=== PATIENT | male | born 1980 | race Caucasian/White ===

== ENCOUNTER 2016-12-27 09:04 | Inpatient (IN) | payer OTHER ==
[~2016-12-27] VITALS: Ht 177.8 cm; Wt 96.4 kg
[2016-12-27] MEDS ORDERED: ACETAMINOPHEN 500 MG TAB PO PRN (10:00)
[2016-12-27 11:43] LABS: BASO % 0.5 % (0.0-1.0); EOS # 0.1 K/mm3 (0.0-0.50); EOS % 0.8 % (0.0-3.0); LARGE UNSTAINED CELL # 0.2 K/mm3 (0.0-0.4); LYMPH # 1.8 K/mm3 (1.5-4.5); MEAN CORPUSCULAR HEMOGLOBIN 28.2 pg (27.0-33.0); MEAN CORPUSCULAR HGB CONC 32.4 g/dl (32.0-36.5); MONO # 0.3 K/mm3 (0.0-0.8); MONO % 4.1 % (0.0-5.0); NEUTROPHILS # 5.2 K/mm3 (1.8-7.7); NEUTROPHILS % 70.5 % (36.0-66.0); PLATELET COUNT, AUTOMATED 397 k/mm3 (150-450); RED CELL DISTRIBUTION WIDTH 13.2 % (11.5-14.5); WHITE BLOOD COUNT 7.3 K/mm3 (4.0-10.0)
[2016-12-27 12:08] LABS: ALBUMIN 3.6 GM/DL (3.2-5.2); ALBUMIN/GLOBULIN RATIO 1.03 (1.00-1.93); ALKALINE PHOSPHATASE 80 U/L (45-117); ALT/SGPT 21 U/L (12-78); ANION GAP 11 MEQ/L (8-16); AST/SGOT 12 U/L (15-37); BILIRUBIN,TOTAL 0.4 MG/DL (0.2-1.0); BLOOD UREA NITROGEN 16 MG/DL (7-18); CALCIUM LEVEL 8.6 MG/DL (8.5-10.1); CARBON DIOXIDE LEVEL 24 MEQ/L (21-32); CHLORIDE LEVEL 106 MEQ/L (98-107); CREATININE FOR GFR 0.84 MG/DL (0.70-1.30); GLOMERULAR FILTRATION RATE > 60.0 (>60); GLUCOSE, FASTING 79 MG/DL (70-105); POTASSIUM SERUM 4.1 MEQ/L (3.5-5.1); SODIUM LEVEL 141 MEQ/L (136-145); TOTAL PROTEIN 7.1 GM/DL (6.4-8.2)
[2016-12-27 14:00] VITALS: BP 136/94
[2016-12-27] MEDS ORDERED: CEFTAROLINE FOSAMIL 600 MG in D5W MINI-BAG PLUS 50 ML IV SCH (14:00)
[2016-12-27] MEDS: ENOXAPARIN 40 MG/0.4 ML SYRINGE (J1650) SC SCH (15:09)
--- NOTE | 2016-12-27 16:57 | REP ---
Left foot series: Four views: History: Left great toe infection. Findings: Four views of the left foot show what appears to be partial resection of the proximal phalanx of the great toe with mild hallux valgus deformity. There is osteoarthritic hypertrophy and narrowing of the IP joint of the great toe. No acute bony erosive change is seen. There is some dorsal forefoot swelling on the lateral film. No soft tissue gas or opaque foreign body is seen. Impression: Presumed postoperative changes in the proximal phalanx of the great toe and osteoarthritic changes at the IP joint. No acute bony destructive lesion. Dorsal forefoot swelling. Signed by Anselmo Radford MD 12/27/2016 05:40 P
[2016-12-27] MEDS: CEFTAROLINE FOSAMIL 600 MG in D5W MINI-BAG PLUS 50 ML IV SCH (17:19)
--- NOTE | 2016-12-27 18:38 | ECGEPIP ---
Stationary ECG Study [facility] Test Date: 2016-12-27 Pat Name: DEISY MCQUEEN Department: Room: [place] [address] Gender: M Correctional Program Officer: JUAN A : 1980 Requested By: ARACELI Berkowitz PA-C Order Number: [id number] Reading MD: Pablo Cummings Measurements Intervals [place] Rate: 89 P: 66 PA: 174 QRS: -48 QRSD: 107 T: 32 QT: 348 QTc: 424 Interpretive Statements SINUS RHYTHM POSSIBLE LEFT ATRIAL ENLARGEMENT INCOMPLETE RIGHT BUNDLE BRANCH BLOCK LEFT ANTERIOR FASCICULAR BLOCK COMPARED TO THE LAST 2 TRACINGS IN THE SYSTEM IN 2011, NO SIGNIFICANT CHANGES Electronically Signed On 12-27-2016 18:38:25 EDT by Pablo Cummings
[2016-12-27] MEDS: TRIAMCINOLONE ACETONIDE 0.025 % 80 GM CREAM TOP SCH (21:00)
[2016-12-27 22:00] VITALS: BP 170/100
[2016-12-28] MEDS: CEFTAROLINE FOSAMIL 600 MG in D5W MINI-BAG PLUS 50 ML IV SCH (04:33)
[2016-12-28 06:00] VITALS: BP 145/91
[2016-12-28 07:16] LABS: MEAN CORPUSCULAR HEMOGLOBIN 28.1 pg (27.0-33.0); MEAN CORPUSCULAR HGB CONC 32.4 g/dl (32.0-36.5); MEAN CORPUSCULAR VOLUME 86.8 fl (80.0-96.0); RED CELL DISTRIBUTION WIDTH 13.1 % (11.5-14.5); WHITE BLOOD COUNT 7.8 K/mm3 (4.0-10.0)
--- NOTE | 2016-12-28 07:33 | IPNPDOC ---
Subjective Date Seen The patient was seen on 12/28/16. Subjective Chief Complaint/HPI The patient is a 36-year-old male admitted with a reason for visit of Left Great Toe Infection. Events since last encounter Per patient report: Podiatry to remove toenail today. Consult note unavailable at time of evaluation. States toes is sensitive to touch, otherwise, minimal pain. Constitutional: Denies: Chills, Fever, Night Sweats ENT: Denies: Dysphagia, Ear Pain, Head Aches Pulmonary: Denies: Cough, Dyspnea Cardiovascular: Denies: Chest Pain, Lt Headedness, Orthopnea, Palpitations, Paroxysmal Noc. Dyspnea Gastrointestinal: Denies: Abdominal Pain, Constipation, Diarrhea, Nausea, Vomiting Genitourinary: Denies: Dysuria, Frequency, Incontinence, Retention Psych: Reports: Mood Normal, Denies: Depression, Memory Issues Objective Physical Examination General Exam: Positive: Alert, No Acute Distress Eye Exam: Positive: Conjunctiva & lids normal, EOMI, PERRLA, Negative: Sclera icteric Neck Exam: Positive: Supple, Negative: JVD, thyromegaly Chest Exam: Positive: Clear to auscultation, Normal air movement Skin Exam: Positive: Other skin issue (Left great toe: erythema, maceration, ingrowing toenail. ) Assessment /Plan Problems (1) Toe infection Status: Acute Problem Text: Ceftaroline D#2. Podiatry to perform intervention today. (2) Failure of outpatient treatment Status: Acute Plan/VTE VTE Prophylaxis Ordered?: Yes (Lovenox) VS, I&O, 24H, Fishbone Vital Signs/I&O Vital Signs Date Time Temp Pulse Resp B/P Pulse Ox O2 Delivery O2 Flow Rate FiO2 12/28/16 06:00 97.8 79 16 145/91 95 Room Air I&O- Last 24 Hours up to 6 AM 12/28/16 06:00 Intake Total 180 ml Output Total 0 ml Balance 180 ml Laboratory Data 24H LABS Laboratory Tests 2 12/27/16 11:19: Blood Urea Nitrogen 16, Creatinine 0.84, Sodium Level 141, Potassium Level 4.1, Chloride Level 106, Carbon Dioxide Level 24, Calcium Level 8.6, Aspartate Amino Transf (AST/SGOT) 12L, Alanine Aminotransferase (ALT/SGPT) 21, Alkaline Phosphatase 80, Total Bilirubin 0.4, Total Protein 7.1, Albumin 3.6, Albumin/ Globulin Ratio 1.03, Anion Gap 11, White Blood Count 7.3, Red Blood Count 4.61, Hemoglobin 13.0L, Hematocrit 40.1L, Mean Corpuscular Volume 87.0, Mean Corpuscular Hemoglobin 28.2, Mean Corpuscular Hemoglobin Concent 32.4, Red Cell Distribution Width 13.2, Platelet Count 397, Neutrophils (%) (Auto) 70.5H, Lymphocytes (%) (Auto) 22.0L, Monocytes (%) (Auto) 4.1, Eosinophils (%) (Auto) 0.8, Basophils (%) (Auto) 0.5, Neutrophils # (Auto) 5.2, Lymphocytes # (Auto) 1.8, Monocytes # (Auto) 0.3, Eosinophils # (Auto) 0.1, Basophils # (Auto) 0.0, Glomerular Filtration Rate > 60.0, Large Unclassified Cells # 0.2, Large Unclassified Cells % 2.0 12/28/16 06:54: CBC/BMP Laboratory Tests 12/27/16 11:19 Calcium Level 8.6, Aspartate Amino Transf (AST/SGOT) 12 L, Alanine Aminotransferase (ALT/SGPT) 21, Alkaline Phosphatase 80, Total Bilirubin 0.4, Total Protein 7.1, Albumin 3.6, Red Blood Count 4.61, Mean Corpuscular Volume 87.0, Mean Corpuscular Hemoglobin 28.2, Mean Corpuscular Hemoglobin Concent 32.4 , Red Cell Distribution Width 13.2, Neutrophils (%) (Auto) 70.5 H, Lymphocytes ( %) (Auto) 22.0 L, Monocytes (%) (Auto) 4.1, Eosinophils (%) (Auto) 0.8, Basophils (%) (Auto) 0.5, Neutrophils # (Auto) 5.2, Lymphocytes # (Auto) 1.8, Monocytes # (Auto) 0.3, Eosinophils # (Auto) 0.1, Basophils # (Auto) 0.0 12/28/16 06:54 Red Blood Count 4.91, Mean Corpuscular Volume 86.8, Mean Corpuscular Hemoglobin 28.1, Mean Corpuscular Hemoglobin Concent 32.4, Red Cell Distribution Width 13.1 Microbiology Microbiology 12/27/16 Blood Culture, Received Pending Milly Gonzales Dec 28, 2016 07:33 Aftab Mcfarlane MD Dec 28, 2016 13:54
[2016-12-28 07:35] LABS: ALBUMIN 3.4 GM/DL (3.2-5.2); ALBUMIN/GLOBULIN RATIO 0.89 (1.00-1.93); ALKALINE PHOSPHATASE 76 U/L (45-117); ALT/SGPT 23 U/L (12-78); ANION GAP 8 MEQ/L (8-16); AST/SGOT 12 U/L (15-37); BILIRUBIN,TOTAL 0.6 MG/DL (0.2-1.0); BLOOD UREA NITROGEN 12 MG/DL (7-18); CARBON DIOXIDE LEVEL 29 MEQ/L (21-32); CHLORIDE LEVEL 104 MEQ/L (98-107); CREATININE FOR GFR 0.88 MG/DL (0.70-1.30); GLOMERULAR FILTRATION RATE > 60.0 (>60); GLUCOSE, FASTING 105 MG/DL (70-105); SODIUM LEVEL 141 MEQ/L (136-145); TOTAL PROTEIN 7.2 GM/DL (6.4-8.2)
[2016-12-28] MEDS: TRIAMCINOLONE ACETONIDE 0.025 % 80 GM CREAM TOP SCH (10:08)
[2016-12-28] MEDS: ENOXAPARIN 40 MG/0.4 ML SYRINGE (J1650) SC SCH (10:08)
--- NOTE | 2016-12-28 13:51 | CR ---
DATE: 12/27/2016 CHIEF COMPLAINT: Patient seen for evaluation of painful big toe on the left foot and a rash on his right foot. He is seen today for evaluation. PHYSICAL EXAMINATION: Reveals an erythematous, crusty type rash with silverly scales on the dorsal aspect of the foot extending from the base of the hallux on the left foot extending over the dorsal surface of the forefoot. There is a similar colored rash present on the lateral aspect of the right foot, however, this rash is considerably larger measuring approximately 7 cm in diameter. There is marked incurving of the hallux of the left foot with some discharge from the proximal nail fold consistent with a paronychia. 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 No fractures are identified. Dorsalis pedis and posterior tibial pulses are palpable. ASSESSMENT: Ingrowing toenail left big toe with cellulitis, dermatitis dorsal aspect of the left forefoot and lateral right foot. PLAN: Orders written for triamcinolone acetonide 0.025% apply to rash twice daily on the left and right foot. Patient will be seen tomorrow morning for a left hallux nail plate avulsion. His questions were answered. He is presently on ceftaroline 600 mg every 12 hours for his cellulitis. His questions are answered.
[2016-12-28] MEDS ORDERED: AUGM875T27 PO (13:53)
[2016-12-28] MEDS ORDERED: TRIA25CR TOP (13:59)
--- NOTE | 2016-12-29 06:42 | IPN ---
DATE: 12/28/2016 at 12:46 p.m. CHIEF COMPLAINT: The patient is seen at bedside for evaluation of an ingrowing toenail as well as dermatitis on the dorsal aspect of his left foot and venous stasis dermatitis on the lateral surface of his right foot. He is seen today for evaluation. PHYSICAL EXAMINATION: Reveals marked incurving of the medial and lateral nail borders of the left big toe. There is discharge coming from the proximal nailfold. There is a dermatitis noted extending from the toe proximally on to the forefoot. It is erythematous. The skin is lichenified. A similar appearing rash is noted on the lateral surface of the right foot. Linear excoriations are noted through the rash secondary to itching. The rash appears consistent with a venous stasis dermatitis. ASSESSMENT: Infected ingrowing toenail left great toe. Venous stasis dermatitis right foot. Dermatitis dorsal aspect of left foot. PLAN: Patient will continue with corticosteroid cream b.i.d., triamcinolone acetonide 0.025% twice a day. Informed consent was obtained. After appropriate time out and site verification, the hallux was anesthetized with 10 mL of a mixture of 0.5% Marcaine and 2% lidocaine in a Armendraiz block fashion. After appropriate anesthesia, the nail plate was removed and a culture was obtained. A dry sterile dressing was applied. The patient is presently on ceftaroline. His antibiotics can be changed according to his culture. Since his foot appears to be resolving cellulitis with a dermatitis, the patient can be discharged on Augmentin 875 mg, dispense 21, by mouth twice a day. This will be tailored according to his culture. Continue on Kenalog cream to the rash twice a day. We encouraged the patient not to itch his rash. Follow up next week.
--- NOTE | 2016-12-29 20:36 | DSES ---
DATE OF ADMISSION: 12/27/2016 DATE OF DISCHARGE: 12/28/2016 REASON FOR ADMISSION: Mr. Estrella was admitted for the office by his primary care provider with complaint of left great toe swelling, rash, pain. Overall appearance was that of cellulitis involving the nail margins and soft tissue proximal to the nail. He had swelling and pain that had been going on for several days, not responding to oral antibiotics at home. Had previous need to have the nail removed under the care of Dr. Mcdonald. Came to hospital, put on ceftaroline overnight. The rash became less and pain diminished. Dr. Mcdonald saw him in surgical consultation and removed the nail, and as recommended, at this time the patient was discharged on amoxicillin clavulanic acid. DISCHARGE DIAGNOSIS: 1. Cellulitis. 2. Ingrown toenail left big toe. 3. Dermatitis dorsal aspect of left forefoot and lateral right foot. PLAN: Discharged on triamcinolone acetonide 0.025% cream to the rash area per Dr. Mcdonald's recommendation, Augmentin 875/125 one by mouth twice a day for [address] Mcdonald and wound dressings per his instructions to the patient. Activity as tolerated. Usual diet.
== END 2016-12-28 16:20 | disposition home or self-care (01) | DRG 383 ==
LOC: M MS5PR 10:52
PROVIDERS: ADMIT Family Medicine; ATTEND Family Medicine
PROC: 0HBRXZZ Excision of Toe Nail, External Approach (ICD-10-PCS; principal; 2016-12-28)
DX: L03.032 Cellulitis of left toe (principal); I83.893 Varicose veins of bilateral lower extremities with other complications; R00.0 Tachycardia, unspecified; L60.0 Ingrowing nail; L08.9 Local infection of the skin and subcutaneous tissue, unspecified; L20.9 Atopic dermatitis, unspecified; Z87.891 Personal history of nicotine dependence; Z79.2 Long term (current) use of antibiotics

== ENCOUNTER → 2017-01-16 | Outpatient (REF) | payer OTHER ==
[~2017-01-16] MED LIST: AUGM875T27 PO; TRIA25CR TOP
== END ==
LOC: M LAB REF 17:26 → EEVIPCON 17:26
PROVIDERS: ATTEND Podiatrist
DX: L97.522 Non-pressure chronic ulcer of other part of left foot with fat layer exposed (principal)

== ENCOUNTER → 2017-05-23 | Outpatient (REF) | payer MEDICAID, OTHER ==
[~2017-05-23] MED LIST changes: -AUGM875T27 PO; +AUGM875T28 PO
== END ==
LOC: M LAB REF 12:53
PROVIDERS: ATTEND Podiatrist
DX: D49.2 Neoplasm of unspecified behavior of bone, soft tissue, and skin (principal)

== ENCOUNTER → 2017-09-12 | Outpatient (REF) | payer OTHER | LOC: M LAB REF 15:30 | PROVIDERS: ATTEND Podiatrist | DX: L03.119 Cellulitis of unspecified part of limb (principal) ==

== ENCOUNTER → 2017-10-29 | Outpatient (REF) | payer OTHER | LOC: M LAB REF 11:34 | DX: L03.116 Cellulitis of left lower limb (principal) ==

== ENCOUNTER → 2017-11-05 | Outpatient (CLI) | payer OTHER ==
[2017-11-05 09:45] LABS: BASO % 0.5 % (0.0-1.0); EOS # 0.2 10^3/uL (0.0-0.50); EOS % 2.7 % (0.0-3.0); HEMATOCRIT 41.4 % (42.0-52.0); HEMOGLOBIN 13.3 g/dl (14.0-18.0); IMMATURE GRANULOCYTE % 0.3 % (0-0); LYMPH # 1.6 10^3/uL (1.5-4.5); LYMPH % 26.2 % (24.0-44.0); MEAN CORPUSCULAR HEMOGLOBIN 28.1 pg (27.0-33.0); MEAN CORPUSCULAR HGB CONC 32.1 g/dl (32.0-36.5); MEAN CORPUSCULAR VOLUME 87.5 fl (80.0-96.0); MONO # 0.6 10^3/uL (0.0-0.8); MONO % 8.8 % (0.0-5.0); NEUTROPHILS # 3.9 10^3/uL (1.8-7.7); NEUTROPHILS % 61.5 % (36.0-66.0); PLATELET COUNT, AUTOMATED 277 10^3/uL (150-450); RED BLOOD COUNT 4.73 10^6/uL (4.30-6.10); RED CELL DISTRIBUTION WIDTH 13.2 % (11.5-14.5); WHITE BLOOD COUNT 6.3 10^3/uL (4.0-10.0)
== END ==
LOC: M LAB 09:14
DX: Z51.81 Encounter for therapeutic drug level monitoring (principal); Z79.2 Long term (current) use of antibiotics; L03.032 Cellulitis of left toe
CPT/HCPCS: 85025

== ENCOUNTER → 2017-12-16 | Outpatient (CLI) | payer OTHER ==
[2017-12-16 09:03] LABS: BASO % 0.6 % (0.0-1.0); EOS # 0.1 10^3/uL (0.0-0.50); EOS % 2.4 % (0.0-3.0); HEMATOCRIT 42.1 % (42.0-52.0); HEMOGLOBIN 13.7 g/dl (14.0-18.0); IMMATURE GRANULOCYTE % 0.2 % (0-3.0); LYMPH # 1.8 10^3/uL (1.5-4.5); LYMPH % 33.3 % (24.0-44.0); MEAN CORPUSCULAR HEMOGLOBIN 28.2 pg (27.0-33.0); MEAN CORPUSCULAR HGB CONC 32.5 g/dl (32.0-36.5); MEAN CORPUSCULAR VOLUME 86.8 fl (80.0-96.0); MONO # 0.5 10^3/uL (0.0-0.8); MONO % 8.6 % (0.0-5.0); NEUTROPHILS % 54.9 % (36.0-66.0); PLATELET COUNT, AUTOMATED 245 10^3/uL (150-450); RED BLOOD COUNT 4.85 10^6/uL (4.30-6.10); RED CELL DISTRIBUTION WIDTH 13.7 % (11.5-14.5); WHITE BLOOD COUNT 5.4 10^3/uL (4.0-10.0)
[2017-12-16 09:52] LABS: ALBUMIN 3.9 GM/DL (3.2-5.2); ALKALINE PHOSPHATASE 79 U/L (45-117); ALT/SGPT 43 U/L (12-78); ANION GAP 5 MEQ/L (8-16); AST/SGOT 19 U/L (7-37); BILIRUBIN,TOTAL 0.7 MG/DL (0.2-1.0); BLOOD UREA NITROGEN 13 MG/DL (7-18); CALCIUM LEVEL 8.6 MG/DL (8.5-10.1); CARBON DIOXIDE LEVEL 29 MEQ/L (21-32); CHLORIDE LEVEL 107 MEQ/L (98-107); CHOLESTEROL LEVEL 232 MG/DL (<200); CHOLESTEROL RISK RATIO 5.272 (<5); CREATININE FOR GFR 0.81 MG/DL (0.70-1.30); GLOMERULAR FILTRATION RATE > 60.0 (>60); GLUCOSE, FASTING 94 MG/DL (70-100); HDL CHOLESTEROL 44 MG/DL (>40); LDL CHOLESTEROL 162.6 MG/DL (<100); NON-HDL-C 188 MG/DL; POTASSIUM SERUM 4.2 MEQ/L (3.5-5.1); SODIUM LEVEL 141 MEQ/L (136-145); THYROID STIMULATING HORMONE 0.669 uIU/ML (0.358-3.740); TOTAL PROTEIN 6.9 GM/DL (6.4-8.2); TRIGLYCERIDES LEVEL 127 MG/DL (<150)
[2017-12-16 09:54] LABS: ESTIMATED AVERAGE GLUCOSE 117 MG/DL (60-110); HEMOGLOBIN A1c 5.7 %
[2017-12-16 12:02] LABS: TOTAL 25(OH) VITAMIN D 18.3 NG/ML (30.0-100.0)
[2017-12-16 12:27] LABS: HIV 1&2 SCREEN CENTAUR NEGATIVE (NEGATIVE)
== END ==
LOC: M LAB 08:40
DX: R03.0 Elevated blood-pressure reading, without diagnosis of hypertension (principal); Z13.9 Encounter for screening, unspecified; Z86.31 Personal history of diabetic foot ulcer
CPT/HCPCS: 84443

== ENCOUNTER → 2018-05-10 | Outpatient (REF) | payer OTHER | LOC: M LAB REF 21:11 | DX: L03.116 Cellulitis of left lower limb (principal) ==

== ENCOUNTER 2018-07-25 18:30 | Emergency (ER) | payer OTHER ==
[2018-07-25 19:23] LABS: BASO % 0.5 % (0.0-1.0); EOS # 0.1 10^3/uL (0.0-0.50); HEMATOCRIT 40.7 % (42.0-52.0); HEMOGLOBIN 13.4 g/dl (13.5-17.5); IMMATURE GRANULOCYTE % 0.5 % (0-3.0); LYMPH # 1.2 10^3/uL (1.5-4.5); MEAN CORPUSCULAR HEMOGLOBIN 28.9 pg (27.0-33.0); MEAN CORPUSCULAR HGB CONC 32.9 g/dl (32.0-36.5); MEAN CORPUSCULAR VOLUME 87.7 fl (80.0-96.0); MONO # 0.4 10^3/uL (0.0-0.8); MONO % 5.3 % (0.0-5.0); NEUTROPHILS # 6.4 10^3/uL (1.8-7.7); NEUTROPHILS % 77.7 % (36.0-66.0); PLATELET COUNT, AUTOMATED 285 10^3/uL (150-450); RED BLOOD COUNT 4.64 10^6/uL (4.30-6.10); RED CELL DISTRIBUTION WIDTH 13.7 % (11.5-14.5); WHITE BLOOD COUNT 8.2 10^3/uL (4.0-10.0)
[2018-07-25 20:04] LABS: ALBUMIN 4.1 GM/DL (3.2-5.2); ALBUMIN/GLOBULIN RATIO 1.32 (1.00-1.93); ALKALINE PHOSPHATASE 75 U/L (45-117); ALT/SGPT 38 U/L (12-78); ANION GAP 9 MEQ/L (8-16); AST/SGOT 15 U/L (7-37); BILIRUBIN,DIRECT 0.2 MG/DL (0.0-0.2); BILIRUBIN,TOTAL 0.8 MG/DL (0.2-1.0); BLOOD UREA NITROGEN 12 MG/DL (7-18); CALCIUM LEVEL 8.9 MG/DL (8.5-10.1); CARBON DIOXIDE LEVEL 27 MEQ/L (21-32); CHLORIDE LEVEL 106 MEQ/L (98-107); CK-MB VALUE MASS < 1.0 NG/ML (<3.6); CPK CREATINE PHOSPHOKINASE 75 U/L (39-308); CREATININE FOR GFR 1.01 MG/DL (0.70-1.30); GLOMERULAR FILTRATION RATE > 60.0 (>60); GLUCOSE, FASTING 128 MG/DL (70-100); LIPASE 75 U/L (73-393); MB/CK RELATIVE INDEX 1.33 (< OR =4); POTASSIUM SERUM 3.5 MEQ/L (3.5-5.1); SODIUM LEVEL 142 MEQ/L (136-145); THYROID STIMULATING HORMONE 0.613 uIU/ML (0.358-3.740); TOTAL PROTEIN 7.2 GM/DL (6.4-8.2); TROPONIN I < 0.02 NG/ML (< 0.10)
[2018-07-25 20:52] LABS: D-DIMER QUANT < 270.0 ng/ml (<500)
[2018-07-25 21:57] LABS: INR 0.93; PROTHROMBIN TIME 12.6 SECONDS (12.1-14.4)
== END 2018-07-25 23:37 | disposition home or self-care (01) ==
LOC: M ED 18:30
DX: F41.0 Panic disorder [episodic paroxysmal anxiety] (principal); F41.1 Generalized anxiety disorder; R06.02 Shortness of breath
CPT/HCPCS: 71046

== ENCOUNTER → 2018-07-28 | Outpatient (REF) | payer OTHER ==
[2018-07-28 12:29] LABS: ESTIMATED AVERAGE GLUCOSE 120 MG/DL (60-110); HEMOGLOBIN A1c 5.8 %
== END ==
LOC: M LAB REF 11:38
DX: R73.01 Impaired fasting glucose (principal)

== ENCOUNTER → 2018-10-27 | Outpatient (REF) | payer MEDICAID ==
[2018-10-27 18:24] LABS: ALBUMIN 3.8 GM/DL (3.2-5.2); ALT/SGPT 40 U/L (12-78); BILIRUBIN,TOTAL 0.6 MG/DL (0.2-1.0); BLOOD UREA NITROGEN 16 MG/DL (7-18); CALCIUM LEVEL 9.6 MG/DL (8.5-10.1); CARBON DIOXIDE LEVEL 30 MEQ/L (21-32); CHLORIDE LEVEL 103 MEQ/L (98-107); CREATININE FOR GFR 0.86 MG/DL (0.70-1.30); GLOMERULAR FILTRATION RATE > 60.0 (>60); GLUCOSE, FASTING 94 MG/DL (70-100); SODIUM LEVEL 141 MEQ/L (136-145)
[2018-10-27 18:37] LABS: HEMOGLOBIN A1c 5.9 %
== END ==
LOC: M LAB REF 16:48
PROVIDERS: ATTEND Nurse Practitioner Adult Health
DX: I10 Essential (primary) hypertension (principal); R73.01 Impaired fasting glucose

== ENCOUNTER → 2018-11-27 | Outpatient (REF) | payer OTHER, MEDICAID ==
[2018-11-27 18:28] LABS: BASO % 0.7 % (0.0-1.0); EOS # 0.1 10^3/uL (0.0-0.50); EOS % 1.1 % (0.0-3.0); HEMOGLOBIN 14.2 g/dl (13.5-17.5); LYMPH # 1.3 10^3/uL (1.5-4.5); LYMPH % 24.8 % (24.0-44.0); MEAN CORPUSCULAR HEMOGLOBIN 28.6 pg (27.0-33.0); MEAN CORPUSCULAR VOLUME 86.7 fl (80.0-96.0); MONO # 0.4 10^3/uL (0.0-0.8); MONO % 7.8 % (0.0-5.0); NEUTROPHILS # 3.5 10^3/uL (1.8-7.7); NEUTROPHILS % 65.4 % (36.0-66.0); PLATELET COUNT, AUTOMATED 277 10^3/uL (150-450); RED BLOOD COUNT 4.96 10^6/uL (4.30-6.10); WHITE BLOOD COUNT 5.4 10^3/uL (4.0-10.0)
[2018-11-27 18:54] LABS: ALBUMIN 3.8 GM/DL (3.2-5.2); ALT/SGPT 33 U/L (12-78); BILIRUBIN,TOTAL 0.8 MG/DL (0.2-1.0); BLOOD UREA NITROGEN 13 MG/DL (7-18); CALCIUM LEVEL 8.4 MG/DL (8.5-10.1); CARBON DIOXIDE LEVEL 26 MEQ/L (21-32); CHLORIDE LEVEL 105 MEQ/L (98-107); CHOLESTEROL LEVEL 228 MG/DL (<200); CREATININE FOR GFR 0.84 MG/DL (0.70-1.30); GLOMERULAR FILTRATION RATE > 60.0 (>60); GLUCOSE, FASTING 109 MG/DL (70-100); HDL CHOLESTEROL 41 MG/DL (>40); IRON (FE) 73 UG/DL (65-175); LDL CHOLESTEROL 147 MG/DL (<100); NON-HDL-C 187 MG/DL; POTASSIUM SERUM 3.8 MEQ/L (3.5-5.1); SODIUM LEVEL 138 MEQ/L (136-145); THYROID STIMULATING HORMONE 0.601 uIU/ML (0.358-3.740); TOTAL PROTEIN 6.7 GM/DL (6.4-8.2); TRIGLYCERIDES LEVEL 198 MG/DL (<150)
[2018-11-28 10:48] LABS: TOTAL 25(OH) VITAMIN D 18.2 NG/ML (30.0-100.0)
== END ==
LOC: M LAB REF 16:50
PROVIDERS: ATTEND Nurse Practitioner Adult Health
DX: I10 Essential (primary) hypertension (principal); R40.0 Somnolence

== ENCOUNTER → 2019-04-17 | Outpatient (REF) | payer OTHER | LOC: M LAB REF 09:52 | PROVIDERS: ATTEND Physician Assistant Medical | DX: J02.9 Acute pharyngitis, unspecified (principal) ==

== ENCOUNTER → 2019-08-07 | Outpatient (REF) | payer OTHER ==
[2019-08-07 16:37] LABS: BASO # 0.1 10^3/uL (0.0-0.2); BASO % 0.5 % (0.0-1.0); EOS # 0.2 10^3/uL (0.0-0.5); EOS % 1.9 % (0.0-3.0); HEMATOCRIT 39.3 % (42.0-52.0); HEMOGLOBIN 12.5 g/dl (13.5-17.5); LYMPH # 1.8 10^3/uL (1.5-5.0); LYMPH % 19.2 % (24.0-44.0); MEAN CORPUSCULAR HGB CONC 31.8 g/dl (32.0-36.5); MEAN CORPUSCULAR VOLUME 88.1 fl (80.0-96.0); MONO # 0.6 10^3/uL (0.0-0.8); MONO % 6.8 % (0.0-5.0); NEUTROPHILS # 6.5 10^3/uL (1.5-8.5); NEUTROPHILS % 71.4 % (36.0-66.0); PLATELET COUNT, AUTOMATED 307 10^3/uL (150-450); RED BLOOD COUNT 4.46 10^6/uL (4.30-6.10); WHITE BLOOD COUNT 9.1 10^3/uL (4.0-10.0)
[2019-08-07 16:59] LABS: ALBUMIN 3.5 GM/DL (3.2-5.2); ALT/SGPT 35 U/L (12-78); BILIRUBIN,TOTAL 0.6 MG/DL (0.2-1.0); BLOOD UREA NITROGEN 32 MG/DL (7-18); CARBON DIOXIDE LEVEL 30 MEQ/L (21-32); CHLORIDE LEVEL 103 MEQ/L (98-107); CHOLESTEROL LEVEL 195 MG/DL (<200); CHOLESTEROL RISK RATIO 5.131 (<5); CREATININE FOR GFR 0.84 MG/DL (0.70-1.30); GLOMERULAR FILTRATION RATE > 60.0 (>60); GLUCOSE, FASTING 98 MG/DL (70-100); HDL CHOLESTEROL 38 MG/DL (>40); LDL CHOLESTEROL 129 MG/DL (<100); NON-HDL-C 157 MG/DL; POTASSIUM SERUM 3.9 MEQ/L (3.5-5.1); SODIUM LEVEL 138 MEQ/L (136-145); THYROID STIMULATING HORMONE 0.637 uIU/ML (0.358-3.740); TOTAL 25(OH) VITAMIN D 21.7 NG/ML (30.0-100.0); TOTAL PROTEIN 6.9 GM/DL (6.4-8.2); TRIGLYCERIDES LEVEL 141 MG/DL (<150)
[2019-08-07 17:10] LABS: ERYTHROCYTE SEDIMENTATION RATE 17 mm/hr (0-15)
== END ==
LOC: M LAB REF 16:01
PROVIDERS: ATTEND Nurse Practitioner Adult Health
DX: Z13.9 Encounter for screening, unspecified (principal)

== ENCOUNTER → 2019-08-13 | Outpatient (CLI) | payer OTHER ==
--- NOTE | 2019-08-13 15:32 | REP ---
Clinical: Venous hypertension and lower extremity ulcer . Technique: Santiago scale and color Doppler evaluation using linear high frequency transducer with reflux evaluation . Findings: Ultrasound examination of the right and left lower extremity deep venous structures from the common femoral vein to the popliteal vein demonstrates normal compressibility flow and wave patterns in response to respiration and augmentation. There is no evidence for deep venous thrombosis. Right lower extremity demonstrates reflux through the deep system as well as through the proximal greater saphenous vein measuring 4.5 mm diameter with duration 3.8 seconds and mid saphenous vein measuring 5.5 mm diameter with duration 3.0 seconds. Reflux also noted through the lesser saphenous vein measuring 8.9 mm with reflux duration 8.4 seconds. Collateral vessels extending from the greater saphenous vein towards the calf with multiple varicosities are identified along with collateral vessels from the lesser saphenous vein with multiple varicosities to the ankle. Left lower extremity demonstrates reflux through the deep system as well as the proximal greater saphenous vein measuring 5.3 mm diameter with duration 5.2 seconds and mid saphenous vein measuring 4.6 mm diameter with duration 5.6 seconds. Reflux also noted through the lesser saphenous vein measuring 3.8 mm diameter with reflux duration 1.4 seconds. A large collateral vessel noted from the mid greater saphenous vein with multiple varicosities. Lesser saphenous vein demonstrates collateral extending to the ankle with multiple varicosities. Impression: No evidence for deep venous thrombosis. Reflux and varicosities noted bilaterally as detailed above. Electronically Signed by Alexandre Barron MD 08/13/2019 03:24 P
--- NOTE | 2019-08-13 15:45 | REP ---
BILATERAL LOWER EXTREMITY DUPLEX DOPPLER ARTERIAL ULTRASOUND: Real-time ultrasound evaluation and duplex Doppler interrogation of bilateral lower extremity arterial systems is performed. There are triphasic waveforms diffusely bilaterally throughout the lower extremity arterial systems. Normal flow velocities are identified bilaterally in all vessels. No significant luminal narrowing is seen. There is no evidence of stenosis or arterial occlusion. NATY right is 1.1 and left 1.0. PEAK SYSTOLIC VELOCITY RIGHT LEFT Common femoral artery 149.0 cm/s 93.6 cm/s Profunda 96.7 67.2 Proximal SFA 127.3 107.0 Superficial femoral artery mid 127.3 106.7 Superficial femoral artery distal 125.8 110.7 Popliteal 83.9 69.4 Proximal anterior tibial artery 50.5 32.2 Tibial peroneal trunk 69.4 68.9 Proximal posterior tibial artery 59.7 82.0 Distal posterior tibial artery 89.8 67.6 Distal anterior tibial artery 53.6 57.6 IMPRESSION: No evidence of significant arterial stenosis or occlusion bilaterally in the lower extremities. Electronically Signed by Reece Santiago MD 08/13/2019 03:56 P
== END ==
LOC: M RAD 10:07
PROVIDERS: ATTEND Surgery
DX: I87.313 Chronic venous hypertension (idiopathic) with ulcer of bilateral lower extremity (principal); L97.522 Non-pressure chronic ulcer of other part of left foot with fat layer exposed

== ENCOUNTER → 2019-10-27 | Outpatient (POV) | payer OTHER ==
[~2019-10-27] VITALS: Ht 177.8 cm; Wt 100.0 kg
[~2019-10-27] MED LIST changes: +CELE20TA PO; +HYDR25TAB PO
[2019-10-27 10:10] VITALS: BP 136/85
--- NOTE | 2019-10-28 08:38 | IRCOV ---
[facility] IR Consult Office Visit IR Consult Office Visit DATE: Oct 27, 2019 REASON FOR CONSULTATION/CHIEF COMPLAINT: Nonhealing venous stasis ulcers. HISTORY OF PRESENT ILLNESS: 38-year-old male with nonhealing superficial bilateral lower extremity ulcers. Patient is currently under the care of wound care. He has a right lower extremity lateral super malleolar ulcer which is almost healed but 3 left lower extremity superficial ulcers, one medial supramal leolar, 1 x lateral super malleolar and 1 x dorsal aspect of ankle which are not healing. These been present for greater than 6 months. Patient describes bulging varicose in the legs for decades associated with bilateral lower extremity swelling. He works at [employer] and stands for long periods of time all day. He elevates his legs at night. No diabetes. No intermittent claudica tion, rest pain, chest pain, shortness of breath, orthopnea or paroxysmal nocturnal dyspnea. No diabetes, no prior heart attacks. No prior deep vein thrombosis. ALLERGIES: Please see below. HOME MEDICATIONS: Please see below. PAST MEDICAL HISTORY: Prediabetes Hyperlipidemia Anxiety Foot deformities Chronic venous stasis PAST SURGICAL HISTORY: Chest surgery for pectus deformity 1998 toe surgery 1985 and 1987 FAMILY HISTORY: Mother and aunt have varicose veins but no ulcers. SOCIAL HISTORY: Nonsmoker. No alcohol or drugs. REVIEW OF SYSTEMS: Otherwise negative PHYSICAL EXAMINATION: VITAL SIGNS: Please see below. GENERAL APPEARANCE: Appears well. Comfortable at rest. HEENT: No scleral icterus. RESPIRATORY: Scattered wheeze. No shortness of breath at rest. Currently has URTI symptoms. CARDIOVASCULAR: Normal rate. ABDOMEN: Soft nontender. EXTREMITIES: Right lower extremity: Bulging varicose veins along GSV territory. Leg edema. Warm to touch. Compression dressing. Left lower extremity: Bulging varicose veins along GSV territory. Warm to touch. Hairless skin. Compression dressing on place. NEUROLOGICAL: Alert and oriented. PSYCHIATRIC: Appropriate to circumstance. LABORATORY DATA: 08/09/2019 hemoglobin 12.5 hematocrit 39.3 WBC 9.1 platelets 307 08/07/2019 sodium 138 potassium 3.9 BUN 32 creatinine 0.84 bilirubin 0.6 AST 19 ALT 35 ALP 96 Imaging: I personally reviewed the ultrasound lower extremities from July 2019. There is abnormal reflux both in the GSV and LSV bilaterally. ASSESSMENT/PLAN: 38-year-old male with bilateral lower extremity venous hypertension and active ulcers, CEAP classification 6 with abnormal superficial venous reflux on ultrasound. I agree patient would benefit from EVLT therapy for bilateral lower extremity GSV and LSV. We discussed the risks and benefits of the procedure and patient would like to proceed. We have scheduled the patient for the procedure, left leg first followed by right leg. I spent 30 minutes in consultation with the patient. Thank you for this referral. Cc Sarina Montanez Allergies Coded Allergies: MS - No Known Drug Allergy (Verified Allergy, Unknown, 12/27/16) VS, I&O, 24H, Fishbone Vital Signs/I&O Vital Signs Date Time Temp Pulse Resp B/P (MAP) Pulse Ox O2 Delivery O2 Flow Rate FiO2 10/27/19 10:10 97.5 87 18 136/85 (102) 98 Room Air SARA OLIVAS MD Oct 28, 2019 08:38
== END ==
LOC: M IRPOV 10:05
PROVIDERS: ATTEND Radiology Diagnostic Radiology
DX: I87.313 Chronic venous hypertension (idiopathic) with ulcer of bilateral lower extremity (principal); L97.929 Non-pressure chronic ulcer of unspecified part of left lower leg with unspecified severity; R73.03 Prediabetes; E78.5 Hyperlipidemia, unspecified; M21.6X9 Other acquired deformities of unspecified foot; I83.029 Varicose veins of left lower extremity with ulcer of unspecified site

== ENCOUNTER → 2019-10-30 | Outpatient (CLI) | payer OTHER ==
[~2019-10-30] MED LIST changes: +LIDOCAINE 1% MDV 20ML VIAL As Ordered ONE; +LIDOCAINE 2% MDV 20 ML VIAL As Ordered ONE; +MIDAZOLAM INJ 2 MG/2 ML VIAL (J2250) As Ordered ONE; +diphenhydrAMINE INJ 50MG/ML VIAL (J1200) As Ordered ONE; +fentaNYL 100 MCG/2 ML INJECTION (J3010) As Ordered ONE
--- NOTE | 2019-10-30 16:10 | IRHP ---
[facility] IR Pre-Procedure H & P General Date of Service: Oct 30, 2019 Procedure: Same Day Surgery Interval History and Physical I have seen the patient and reviewed last H & P performed within 30 days. There is no significant interval change. History of Present Illness Chief Complaint The patient is a 38-year-old male admitted with a reason for visit of Venous Reflux. PRE-PROCEDURE DIAGNOSIS: venous reflux HEART: normal rate. LUNGS: normal breathing at rest. ASA Classification ASA Classification: II-Mild systemic disease, III-Severe systemic dis. Mallampati Score: II NPO: Yes Problems with prior sedation: No Obstructive Sleep Apnea: No Plan moderate sedation Allergies Coded Allergies: MS - No Known Drug Allergy (Verified Allergy, Unknown, 12/27/16) Home Medications Scheduled Citalopram Hydrobromide (Celexa), 20 MG PO DAILY, (Reported) Hydrochlorothiazide (Hydrochlorothiazide), 25 MG PO DAILY, (Reported) VS, I&O, 24H, Fishbone Vital Signs/I&O Vital Signs Date Time Temp Pulse Resp B/P (MAP) Pulse Ox O2 Delivery O2 Flow Rate FiO2 10/30/19 15:55 91 20 100 10/30/19 15:50 Nasal Cannula 2 10/30/19 13:33 98.9 SARA OLIVAS MD Oct 30, 2019 16:10
--- NOTE | 2019-10-30 16:15 | POST-OPPD ---
Postoperative Procedure Note Date Of Procedure: Oct 30, 2019 Time Of Procedure: 16:14 PREOPERATIVE DIAGNOSIS: venous reflux POSTOPERATIVE DIAGNOSIS: same FINDINGS: abnormal left GSV reflux PROCEDURE: left GSV EVLT SURGEON: claudette ANESTHESIA: mod sed ESTIMATED BLOOD LOSS: < 5 ml COMPLICATIONS: none POSTOPERATIVE CONDITION: stable SARA OLIVAS MD Oct 30, 2019 16:15
[2019-10-30 16:42] VITALS: BP 133/68
--- NOTE | 2019-10-30 19:38 | REP ---
IR Endovenous laser treatment for left leg varicose vein. IR Ultrasound of the left leg. IR Tumescent anesthesia under ultrasound guidance. IR moderate sedation. Clinical information: Bilateral varicose veins and venous hypertension Physician: Dr. Allen. Procedure: The patient was advised of the benefits, risks and alternatives of the procedure and informed consent was obtained. The time-out was performed with verification of the patient's name, MRN, site of procedure and type of procedure to be performed. The patient was positioned in the supine position on the table. The site was prepped and draped in the usual sterile fashion. Moderate sedation was performed by the physician including the presence of an independent trained observer who assisted in monitoring the patient's level of consciousness and physiologic status. Following the administration of fentanyl and Versed , the physician spent 60 minutes of continuous face to face time with the patient. Ultrasound of the left leg demonstrates dilated greater saphenous vein with greater than 0.5 seconds reflux. There is also a dilated left posterior thigh vein which connects down to the lesser saphenous vein. There is reflux within the lesser saphenous vein and the posterior vein. The access site was identified with ultrasound and anesthetized with lidocaine. The GSV was accessed under ultrasound guidance mid thigh, using a micro introducer needle. An 018 cope wire was advanced into the vein. Incision at the access site was made using a scalpel. The needle was removed and a micro sheath was advanced over the wire under ultrasound guidance. The wire was exchanged for an 035 wire. The micro sheath was removed over the wire and a 6-Croatian vascular sheath was advanced over the wire and under ultrasound guidance. The access catheter was advanced through the sheath under ultrasound guidance and positioned 2.5 centimeters from the saphenofemoral junction. There laser fiber was advanced through the catheter under ultrasound guidance and positioned with the tip located 2.5 cm from the saphenous femoral junction. Tumescent anesthesia was then injected under ultrasound guidance along the entire length of the vein to be treated. Repeat ultrasound of the saphenofemoral junction was used to confirm positioning of the tip of the laser back 2.5 cm from junction. The sheath was retracted back over the catheter. The patient was positioned in Trendelenburg. The laser was then activated and under ultrasound guidance used to laser the anterior accessory greater saphenous vein back to the access point. Simultaneous manual compression was applied to the treated vein. Treatment: Wattage: 7 Time: 64 seconds Pullback rate 1 cm every 7 seconds Total Energy deposited 457 joules Treatment 50 joules per centimeter of vein. The fiber, catheter and sheath were removed, pressure held and hemostasis achieved. A sterile dressing was applied to the site. Compression dressing was then applied to the leg, from ankle to groin. The patient tolerated the procedure well and was returned to the PRU in stable condition. EBL: < 5 ml. Complications: None. Impression: 1. Ultrasound demonstrates left greater saphenous vein with maximum reflux. There are also varicosities along the lesser saphenous which demonstrate less reflux. 2. Successful left greater saphenous vein ablation with laser. 3. Compression dressing applied from ankle to groin. Patient to return in 1 week for follow up ultrasound at which time the compression dressing will be switched to stockings. 4. Patient will be scheduled for right lower extremity ablation. Thank you this referral. Electronically Signed by Mayra Allen MD 10/30/2019 07:37 P
== END ==
LOC: M IRPRO 13:18
PROVIDERS: ATTEND Radiology Diagnostic Radiology
DX: I83.93 Asymptomatic varicose veins of bilateral lower extremities (principal); I87.303 Chronic venous hypertension (idiopathic) without complications of bilateral lower extremity
CPT/HCPCS: 36475; 76940; 99152; 99153; J1200; J2250; J3010

== ENCOUNTER → 2019-11-06 | Outpatient (CLI) | payer OTHER ==
[~2019-11-06] MED LIST changes: -LIDOCAINE 1% MDV 20ML VIAL As Ordered ONE; -LIDOCAINE 2% MDV 20 ML VIAL As Ordered ONE; -MIDAZOLAM INJ 2 MG/2 ML VIAL (J2250) As Ordered ONE; -diphenhydrAMINE INJ 50MG/ML VIAL (J1200) As Ordered ONE; -fentaNYL 100 MCG/2 ML INJECTION (J3010) As Ordered ONE
--- NOTE | 2019-11-06 12:43 | REP ---
Left lower extremity deep vein duplex ultrasound: Comparison is 08/13/2019. The deep veins demonstrate normal compression, normal Doppler color flow and normal Doppler waveforms with respiration augmentation from the popliteal vein to the common femoral vein. There is no deep vein thrombus in the left lower extremity. However, thrombus is identified in the greater saphenous vein from approximately 2.3 cm distal to the greater saphenous vein/common femoral vein junction to the mid thigh. Impression: There is greater saphenous vein thrombus as described. There is no deep vein thrombus. Electronically Signed by Reece Benavidez MD 11/06/2019 12:34 P
--- NOTE | 2019-11-09 09:49 | IRPN ---
[facility] IR Progress Note IR Progress Note DATE: Nov 06, 2019 I personally reviewed the follow-up ultrasound performed 1 week status post left leg EVLT. Appropriately treated thrombosed left greater saphenous vein without flow. No deep vein thrombosis. Patient will return for right leg treatment. Thank you for this referral Allergies Coded Allergies: MS - No Known Drug Allergy (Verified Allergy, Unknown, 12/27/16) SARA OLIVAS MD Nov 09, 2019 09:49
== END ==
LOC: M RAD 09:59
PROVIDERS: ATTEND Radiology Diagnostic Radiology
DX: I82.812 Embolism and thrombosis of superficial veins of left lower extremity (principal)

== ENCOUNTER → 2020-06-29 | Outpatient (REF) | payer OTHER, MEDICAID ==
[2020-06-29 12:59] LABS: BASO % 0.4 % (0.0-1.0); EOS # 0.1 10^3/uL (0.0-0.5); EOS % 2.3 % (0.0-3.0); HEMATOCRIT 41.1 % (42.0-52.0); HEMOGLOBIN 12.9 g/dl (13.5-17.5); LYMPH # 1.7 10^3/uL (1.5-5.0); LYMPH % 30.1 % (24.0-44.0); MEAN CORPUSCULAR HEMOGLOBIN 27.7 pg (27.0-33.0); MEAN CORPUSCULAR HGB CONC 31.4 g/dl (32.0-36.5); MEAN CORPUSCULAR VOLUME 88.4 fl (80.0-96.0); MONO # 0.4 10^3/uL (0.0-0.8); MONO % 7.5 % (0.0-5.0); NEUTROPHILS # 3.3 10^3/uL (1.5-8.5); NEUTROPHILS % 59.5 % (36.0-66.0); PLATELET COUNT, AUTOMATED 294 10^3/uL (150-450); RED BLOOD COUNT 4.65 10^6/uL (4.30-6.10); WHITE BLOOD COUNT 5.6 10^3/uL (4.0-10.0)
[2020-06-29 13:08] LABS: ALBUMIN 3.6 GM/DL (3.2-5.2); ALT/SGPT 33 U/L (12-78); BILIRUBIN,TOTAL 0.5 MG/DL (0.2-1.0); BLOOD UREA NITROGEN 15 MG/DL (7-18); CALCIUM LEVEL 9.1 MG/DL (8.5-10.1); CARBON DIOXIDE LEVEL 31 MEQ/L (21-32); CHLORIDE LEVEL 103 MEQ/L (98-107); CHOLESTEROL LEVEL 232 MG/DL (<200); CHOLESTEROL RISK RATIO 5.043 (<5); CREATININE FOR GFR 0.87 MG/DL (0.70-1.30); FREE T4 1.04 NG/DL (0.76-1.46); GLOMERULAR FILTRATION RATE > 60.0 (>60); GLUCOSE, FASTING 96 MG/DL (70-100); HDL CHOLESTEROL 46 MG/DL (>40); LDL CHOLESTEROL 145 MG/DL (<100); NON-HDL-C 186 MG/DL; POTASSIUM SERUM 4.2 MEQ/L (3.5-5.1); SODIUM LEVEL 137 MEQ/L (136-145); THYROID STIMULATING HORMONE 0.489 uIU/ML (0.358-3.740); TRIGLYCERIDES LEVEL 204 MG/DL (<150)
[2020-06-29 13:10] LABS: TOTAL 25(OH) VITAMIN D 17.2 NG/ML (30.0-100.0)
== END ==
LOC: M LAB REF 12:28
PROVIDERS: ATTEND Physician Assistant
DX: E55.9 Vitamin D deficiency, unspecified (principal); F41.1 Generalized anxiety disorder; E66.9 Obesity, unspecified; R73.03 Prediabetes; I10 Essential (primary) hypertension; Z68.33 Body mass index [BMI] 33.0-33.9, adult; I83.93 Asymptomatic varicose veins of bilateral lower extremities

== ENCOUNTER 2020-12-25 14:36 | Emergency (ER) | payer MEDICAID, OTHER, SELFPAY ==
[~2020-12-25] VITALS: Ht 177.8 cm; Wt 106.9 kg
[~2020-12-25 14:36] MED LIST changes: +HYDR-3490 PO; -HYDR25TAB PO
[2020-12-25] MEDS ORDERED: NS 1,000 ML IV ONE (15:10)
[2020-12-25 15:30] LABS: BASO % 0.8 % (0.0-1.0); EOS # 0.1 10^3/uL (0.0-0.5); EOS % 1.9 % (0.0-3.0); HEMATOCRIT 43.5 % (42.0-52.0); LYMPH # 1.2 10^3/uL (1.5-5.0); LYMPH % 23.7 % (24.0-44.0); MEAN CORPUSCULAR HEMOGLOBIN 27.9 pg (27.0-33.0); MEAN CORPUSCULAR HGB CONC 32.2 g/dl (32.0-36.5); MEAN CORPUSCULAR VOLUME 86.7 fl (80.0-96.0); MONO # 0.4 10^3/uL (0.0-0.8); MONO % 7.8 % (2.0-8.0); NEUTROPHILS # 3.4 10^3/uL (1.5-8.5); NEUTROPHILS % 65.6 % (36.0-66.0); PLATELET COUNT, AUTOMATED 267 10^3/uL (150-450); RED BLOOD COUNT 5.02 10^6/uL (4.30-6.10); WHITE BLOOD COUNT 5.1 10^3/uL (4.0-10.0)
--- NOTE | 2020-12-25 15:41 | REP ---
INDICATION: CHEST PAIN COMPARISON: 07/25/2018 TECHNIQUE: Portable AP view of the chest FINDINGS: Mediastinum and cardiac silhouette are stable and within normal limits. Lung epps are clear and without acute consolidation, effusion, or pneumothorax. Skeletal structures appear stable. IMPRESSION: No acute cardiopulmonary process appreciated. <Electronically signed by Alexandre Barron > 12/25/20 1535
[2020-12-25 16:05] LABS: ALBUMIN 3.6 GM/DL (3.2-5.2); ALT/SGPT 25 U/L (12-78); BILIRUBIN,DIRECT 0.1 MG/DL (0.0-0.2); BILIRUBIN,TOTAL 0.4 MG/DL (0.2-1.0); BLOOD UREA NITROGEN 14 MG/DL (7-18); CALCIUM LEVEL 9.2 MG/DL (8.5-10.1); CARBON DIOXIDE LEVEL 30 MEQ/L (21-32); CHLORIDE LEVEL 106 MEQ/L (98-107); CK-MB VALUE MASS 1.5 NG/ML (<3.6); CPK CREATINE PHOSPHOKINASE 75 U/L (39-308); CREATININE FOR GFR 0.74 MG/DL (0.70-1.30); GLOMERULAR FILTRATION RATE > 60.0 (>60); GLUCOSE, FASTING 96 MG/DL (70-100); LIPASE 88 U/L (73-393); NT-PRO BNP 37 PG/ML (<125); POTASSIUM SERUM 4.1 MEQ/L (3.5-5.1); SODIUM LEVEL 139 MEQ/L (136-145); THYROID STIMULATING HORMONE 0.596 uIU/ML (0.358-3.740); TROPONIN I < 0.02 NG/ML (< 0.10)
[2020-12-25 17:45] VITALS: BP 123/68
--- NOTE | 2020-12-26 07:12 | ECGEPIP ---
[facility] - ED Test Date: 2020-12-25 Pat Name: DEISY MCQUEEN Department: Room: - Gender: Male Live Hanger: ED : 1980 Requested By: Alejandra Norton Order Number: [id number] Reading MD: Saeed Watson Measurements Intervals [place] Rate: 69 P: 55 OR: 174 QRS: -47 QRSD: 110 T: 26 QT: 376 QTc: 402 Interpretive Statements Normal sinus rhythm Incomplete right bundle branch block Electronically Signed on 12-26-2020 7:11:21 EDT by Saeed Watson
== END 2020-12-25 18:08 | disposition home or self-care (01) ==
LOC: M ED 14:36
DX: R53.83 Other fatigue (principal); R07.9 Chest pain, unspecified; I45.19 Other right bundle-branch block; J45.909 Unspecified asthma, uncomplicated; F41.9 Anxiety disorder, unspecified; Z79.899 Other long term (current) drug therapy

== ENCOUNTER 2021-01-16 15:29 | Emergency (ER) | payer OTHER ==
[~2021-01-16] VITALS: Ht 177.8 cm; Wt 106.7 kg
[2021-01-16] MEDS ORDERED: ATOR1TAB19 (16:21)
[2021-01-16] MEDS ORDERED: D 202000 (16:21)
[2021-01-16 19:17] VITALS: BP 142/83
--- NOTE | 2021-01-17 17:54 | ECGEPIP ---
[facility] - ED Test Date: 2021-01-16 Pat Name: DEISY MCQUEEN Department: Room: - Gender: Male Roustabout: [place] COTE : 1980 Requested By: Saeed Mojica Order Number: [id number] Reading MD: Alejandra Norton Measurements Intervals [place] Rate: 67 P: 32 AK: 180 QRS: -32 QRSD: 114 T: 13 QT: 402 QTc: 424 Interpretive Statements Normal sinus rhythm Left axis deviation Incomplete right bundle branch block Cannot rule out Anterior infarct , age undetermined similar 12/25/20 Electronically Signed on 01-17-2021 17:54:52 EDT by Alejandra Norton
== END 2021-01-16 19:19 | disposition home or self-care (01) ==
LOC: M ED 15:29
DX: R07.89 Other chest pain (principal); I45.10 Unspecified right bundle-branch block; R42 Dizziness and giddiness; R11.0 Nausea; R06.02 Shortness of breath; F41.9 Anxiety disorder, unspecified; E78.5 Hyperlipidemia, unspecified; Z82.49 Family history of ischemic heart disease and other diseases of the circulatory system; Z79.899 Other long term (current) drug therapy

== ENCOUNTER → 2021-01-25 | Outpatient (REF) | payer OTHER ==
[~2021-01-25] MED LIST changes: +ATOR1TAB19; +D 202000
[2021-01-25 17:10] LABS: CHOLESTEROL RISK RATIO 4.071 (<5)
[2021-01-25 19:35] LABS: TOTAL 25(OH) VITAMIN D 25.7 NG/ML (30.0-100.0)
[2021-01-26 14:21] LABS: HEMOGLOBIN A1c 5.8 %
== END ==
LOC: M LAB REF 15:45
PROVIDERS: ATTEND Physician Assistant
DX: E55.9 Vitamin D deficiency, unspecified (principal); E78.2 Mixed hyperlipidemia; R73.03 Prediabetes

== ENCOUNTER → 2024-03-26 | Outpatient (REF) | payer OTHER ==
[~2024-03-26] MED LIST changes: -D 202000; +VITA200032
[2024-03-26 19:13] LABS: HEMATOCRIT 44.1 % (42.0-52.0); MEAN CORPUSCULAR HEMOGLOBIN 27.8 pg (27.0-33.0); MEAN CORPUSCULAR HGB CONC 31.7 g/dl (32.0-36.5); MEAN CORPUSCULAR VOLUME 87.7 fl (80.0-96.0); PLATELET COUNT, AUTOMATED 274 10^3/uL (150-450); RED BLOOD COUNT 5.03 10^6/uL (4.30-6.10); WHITE BLOOD COUNT 5.7 10^3/uL (4.0-10.0)
[2024-03-26 19:24] LABS: ALBUMIN 3.7 G/DL (3.2-5.2); ALKALINE PHOSPHATASE 68 U/L (46-116); ALT/SGPT 35 U/L (7.0-40); AST/SGOT 15 U/L (<34); BILIRUBIN,TOTAL 0.7 MG/DL (0.3-1.2); BLOOD UREA NITROGEN 15 MG/DL (9-23); CALCIUM LEVEL 9.1 MG/DL (8.5-10.1); CARBON DIOXIDE LEVEL 28 MMOL/L (20-31); CHLORIDE LEVEL 106 MMOL/L (98-107); CHOLESTEROL LEVEL 219 MG/DL (<200); CHOLESTEROL RISK RATIO 5.12 (<5); GLOMERULAR FILTRATION RATE > 60.0 (>60); GLUCOSE, FASTING 104 MG/DL (60-100); HDL CHOLESTEROL 42.7 MG/DL (>40); LDL CHOLESTEROL 147.7 MG/DL (<100); NON-HDL-C 176.3 MG/DL; POTASSIUM SERUM 4.1 MMOL/L (3.5-5.1); SODIUM LEVEL 139 MMOL/L (136-145); TOTAL 25(OH) VITAMIN D 22.3 NG/ML (20.0-100.0); TOTAL PROTEIN 6.3 G/DL (5.7-8.2); TRIGLYCERIDES LEVEL 143 MG/DL (<150)
[2024-03-26 19:32] LABS: HEMOGLOBIN A1c 5.9 % (4.0-6.0)
== END ==
LOC: M LAB REF 16:40
PROVIDERS: ATTEND Physician Assistant
DX: R73.03 Prediabetes (principal); E78.2 Mixed hyperlipidemia; E55.9 Vitamin D deficiency, unspecified

== ENCOUNTER 2024-09-20 22:48 | Emergency (ER) | payer OTHER ==
[~2024-09-20] VITALS: Ht 180.3 cm; Wt 115.5 kg
[2024-09-20 22:53] VITALS: TEMP 97.3
[2024-09-20 23:57] LABS: BASO % 0.5 % (0.0-1.0); EOS # 0.1 10^3/uL (0.0-0.5); EOS % 1.5 % (0.0-3.0); HEMATOCRIT 43.6 % (42.0-52.0); HEMOGLOBIN 14.2 g/dl (13.5-17.5); LYMPH # 2.4 10^3/uL (1.5-5.0); LYMPH % 32.6 % (24.0-44.0); MEAN CORPUSCULAR HEMOGLOBIN 28.3 pg (27.0-33.0); MEAN CORPUSCULAR HGB CONC 32.6 g/dl (32.0-36.5); MONO # 0.6 10^3/uL (0.0-0.8); MONO % 8.1 % (2.0-8.0); NEUTROPHILS # 4.3 10^3/uL (1.5-8.5); NEUTROPHILS % 57.2 % (36.0-66.0); PLATELET COUNT, AUTOMATED 306 10^3/uL (150-450); RED BLOOD COUNT 5.01 10^6/uL (4.30-6.10); WHITE BLOOD COUNT 7.4 10^3/uL (4.0-10.0)
[2024-09-21 00:09] LABS: INR 0.91; PARTIAL THROMBOPLASTIN TIME 25.3 SECONDS (24.8-34.2); PROTHROMBIN TIME 12.5 SECONDS (12.5-14.5)
[2024-09-21 00:10] LABS: LIPASE 30 U/L (12-53)
[2024-09-21 00:12] LABS: ALBUMIN 3.7 G/DL (3.2-5.2); ALKALINE PHOSPHATASE 72 U/L (40-129); ALT/SGPT 41 U/L (7.0-40); AST/SGOT 23 U/L (<34); BILIRUBIN,DIRECT 0.1 MG/DL (<0.4); BILIRUBIN,TOTAL 0.5 MG/DL (0.3-1.2); BLOOD UREA NITROGEN 20 MG/DL (9-23); CARBON DIOXIDE LEVEL 29 MMOL/L (20-31); CHLORIDE LEVEL 104 MMOL/L (98-107); CREATININE FOR GFR 0.88 MG/DL (0.70-1.30); GLOMERULAR FILTRATION RATE > 60.0 (>60); GLUCOSE, FASTING 117 MG/DL (60-100); POTASSIUM SERUM 3.6 MMOL/L (3.5-5.1); SODIUM LEVEL 139 MMOL/L (136-145); TOTAL PROTEIN 7.1 G/DL (5.7-8.2)
[2024-09-21] MEDS ORDERED: ISOVUE-370 76% 100ML VIAL As Ordered ONE (00:18)
[2024-09-21 00:21] LABS: THYROID STIMULATING HORMONE 1.017 uIU/ML (0.55-4.78)
[2024-09-21 00:22] LABS: FREE T4 1.36 NG/DL (0.89-1.76)
[2024-09-21 01:30] VITALS: BP 135/72; O2SAT 97
== END 2024-09-21 02:00 | disposition home or self-care (01) ==
LOC: M ED 22:48
DX: J06.9 Acute upper respiratory infection, unspecified (principal); B34.1 Enterovirus infection, unspecified; I10 Essential (primary) hypertension; F41.9 Anxiety disorder, unspecified; Z79.899 Other long term (current) drug therapy
CPT/HCPCS: 36415; 74177; 80048; 80076; 83690; 84439; 84443; 85025; 85610; 85730; 86850; 86900; 86901; 87486; 87581; 87633; 87798; 99284; Q9967

== ENCOUNTER → 2025-05-03 | Outpatient (CLI) | payer OTHER ==
[~2025-05-03] MED LIST changes: -TRIA25CR TOP; +TRIA80CR15 TOP
[2025-05-03 15:45] LABS: PLATELET COUNT, AUTOMATED 282 10^3/uL (150-450)
[2025-05-03 16:07] LABS: ESTIMATED AVERAGE GLUCOSE 123.0 MG/DL (60-110)
[2025-05-03 16:11] LABS: ALT/SGPT 31 U/L (7.0-40); AST/SGOT 21 U/L (<34); CALCIUM LEVEL 9.3 MG/DL (8.5-10.1); CARBON DIOXIDE LEVEL 29 MMOL/L (20-31); CHLORIDE LEVEL 102 MMOL/L (98-107); CHOLESTEROL LEVEL 211 MG/DL (<200); CHOLESTEROL RISK RATIO 5.30 (<5); CREATININE FOR GFR 0.85 MG/DL (0.70-1.30); GLOMERULAR FILTRATION RATE > 90.0 (>60); LDL CHOLESTEROL 98.8 MG/DL (<100); NON-HDL-C 171.2 MG/DL; POTASSIUM SERUM 3.7 MMOL/L (3.5-5.1); SODIUM LEVEL 142 MMOL/L (136-145); TRIGLYCERIDES LEVEL 362 MG/DL (<150)
== END ==
LOC: M LAB 15:08
PROVIDERS: ATTEND Physician Assistant
DX: R73.03 Prediabetes (principal)

== ENCOUNTER → 2025-05-28 | Outpatient (CLI) | payer OTHER | LOC: M SLEEP HO 11:31 | PROVIDERS: ATTEND Nurse Practitioner Family | DX: R06.83 Snoring (principal) ==